=== PATIENT | male | born 1975 | race Caucasian/White ===

== ENCOUNTER 2017-10-16 17:28 | Emergency (ER) | payer OTHER ==
[~2017-10-16] VITALS: Ht 180.3 cm; Wt 72.6 kg
[2017-10-16 17:30] VITALS: BP 157/89
[2017-10-16] MEDS ORDERED: IBUPROFEN 600 MG TABLET PO ONE (17:43)
[2017-10-16] MEDS ORDERED: LIDOCAINE HCL/MPF 1% 30 ML VIAL IJ ONE (17:44)
[2017-10-16] MEDS: LIDOCAINE HCL/PF 1% 30 ML SDV IJ ONE (17:50)
--- NOTE | 2017-10-16 17:50 | NUR ---
I & D SET UP AT THE BEDSIDE.
[2017-10-16] MEDS: IBUPROFEN 600 MG TABLET PO ONE (17:51)
--- NOTE | 2017-10-16 17:56 | NUR ---
I & D IN PROGRESS AT THE BEDSIDE.
[2017-10-16] MEDS ORDERED: SULFAMETH/TRIMETH 800/160 MG 1 UDTAB TABLET PO ONE (18:04)
[2017-10-16] MEDS ORDERED: CEPHALEXIN MONOHYDRATE 500 MG CAPSULE PO ONE (18:04)
--- NOTE | 2017-10-16 18:06 | NUR ---
WOUND CARE IN PROGRESS.
[2017-10-16] MEDS: SULFAMETH/TRIMETH 800/160 MG 1 UDTAB TABLET PO ONE (18:10)
[2017-10-16] MEDS: CEPHALEXIN MONOHYDRATE 500 MG CAPSULE PO ONE (18:10)
== END 2017-10-16 18:20 | disposition home or self-care (01) ==
LOC: ER 17:29
DX: L02.416 Cutaneous abscess of left lower limb (principal)
CPT/HCPCS: A4606; A6402; A6407; Z7610

== ENCOUNTER 2017-10-18 21:27 | Emergency (ER) | payer OTHER ==
[~2017-10-18] VITALS: Ht 175.3 cm; Wt 79.4 kg
[2017-10-18 22:00] VITALS: BP 120/70
== END 2017-10-18 22:00 | disposition home or self-care (01) ==
LOC: ER 21:31
DX: Z48.01 Encounter for change or removal of surgical wound dressing (principal); L02.416 Cutaneous abscess of left lower limb
CPT/HCPCS: 99281; A4606; Z7610; Z7502

== ENCOUNTER 2017-11-25 20:25 | Emergency (ER) | payer OTHER ==
[~2017-11-25] VITALS: Ht 172.7 cm; Wt 79.4 kg
[2017-11-25 20:30] VITALS: BP 147/83
== END 2017-11-25 21:50 | disposition home or self-care (01) ==
LOC: ER 20:25
DX: S60.943A Unspecified superficial injury of left middle finger, initial encounter (principal); W22.8XXA Striking against or struck by other objects, initial encounter; Y93.89 Activity, other specified; Y92.89 Other specified places as the place of occurrence of the external cause; Y99.8 Other external cause status
CPT/HCPCS: 73140-TC; A4606; Z7610

== ENCOUNTER 2017-12-07 00:23 | Emergency (ER) | payer OTHER ==
--- NOTE | 2017-12-07 00:52 | NUR ---
CALLED; NO ANSWER
--- NOTE | 2017-12-07 01:00 | NUR ---
INFORMED BY ADMITTING "PT LEFT"
== END 2017-12-07 01:01 | disposition left against medical advice (07) ==
LOC: ER 00:24
DX: Z53.21 Procedure and treatment not carried out due to patient leaving prior to being seen by health care provider (principal)

== ENCOUNTER 2017-12-09 22:33 | Emergency (ER) | payer OTHER ==
[~2017-12-09] VITALS: Ht 175.3 cm; Wt 79.4 kg
[2017-12-09 22:59] VITALS: BP 136/85
== END 2017-12-09 23:41 | disposition home or self-care (01) ==
LOC: ER 22:33
DX: S63.613A Unspecified sprain of left middle finger, initial encounter (principal); X58.XXXA Exposure to other specified factors, initial encounter; Y93.89 Activity, other specified; Y92.89 Other specified places as the place of occurrence of the external cause; Y99.8 Other external cause status
CPT/HCPCS: A4606; Z7610

== ENCOUNTER 2019-03-31 15:53 | Emergency (ER) | payer OTHER ==
[~2019-03-31] VITALS: Ht 172.7 cm; Wt 77.1 kg
[2019-03-31 16:01] VITALS: BP 140/99
--- NOTE | 2019-03-31 16:31 | NUR ---
Patient discharged to home in stable condition. Written and verbal after care instructions given. Patient verbalizes understanding of instruction.
== END 2019-03-31 16:31 | disposition home or self-care (01) ==
LOC: ER 15:54
DX: S01.01XA Laceration without foreign body of scalp, initial encounter (principal); W22.8XXA Striking against or struck by other objects, initial encounter; Y93.89 Activity, other specified; Y92.89 Other specified places as the place of occurrence of the external cause; Y99.8 Other external cause status
CPT/HCPCS: 12001; 99283; A6403

== ENCOUNTER 2019-04-02 16:28 | Emergency (ER) | payer OTHER ==
[~2019-04-02] VITALS: Ht 172.7 cm; Wt 79.4 kg
[2019-04-02 17:21] VITALS: BP 148/98
== END 2019-04-02 17:41 | disposition home or self-care (01) ==
LOC: ER 16:28
DX: S01.01XD Laceration without foreign body of scalp, subsequent encounter (principal); X58.XXXD Exposure to other specified factors, subsequent encounter

== ENCOUNTER 2019-04-07 16:40 | Emergency (ER) | payer OTHER ==
[~2019-04-07] VITALS: Ht 172.7 cm; Wt 79.4 kg
[2019-04-07 17:08] VITALS: BP 157/97
== END 2019-04-07 17:30 | disposition home or self-care (01) ==
LOC: ER 16:48
DX: S01.01XD Laceration without foreign body of scalp, subsequent encounter (principal); Z48.02 Encounter for removal of sutures; X58.XXXD Exposure to other specified factors, subsequent encounter

== ENCOUNTER 2020-12-28 16:06 | Emergency (ER) | payer OTHER ==
[~2020-12-28] VITALS: Ht 175.3 cm; Wt 78.5 kg
[2020-12-28 16:06] VITALS: BP 170/86
--- NOTE | 2020-12-28 16:37 | NUR ---
Patient discharged to home in stable condition. Written and verbal after care instructions given. Patient verbalizes understanding of instruction.
== END 2020-12-28 16:37 | disposition home or self-care (01) ==
LOC: ER 16:06
DX: J11.1 Influenza due to unidentified influenza virus with other respiratory manifestations (principal)